=== PATIENT | female | born 1945 | race Caucasian/White ===

== ENCOUNTER → 2021-12-17 | Outpatient (CLI) | payer MEDICARE, SELFPAY ==
[2021-12-17 15:46] LABS: AST(SGOT) 19 U/L (15-37); Alanine Aminotransfer ALT/SGPT 27 U/L (13-56); Albumin, Serum 3.6 g/dL (3.2-5.0); Alkaline Phosphatase 80 U/L (45-117); Bilirubin, Direct 0.12 mg/dL (0.00-0.30); Cholesterol 209 mg/dL (200); Globulin 3.5 g/dL (2.2-4.2); High Density Lipoprotein 85 mg/dL; Protein, Total 7.1 g/dL (6.4-8.2); Triglycerides 85 mg/dL; Very Low Density Lipoprotein 17 mg/dL (5-40)
== END | disposition home or self-care (01) ==
PROVIDERS: PCP Internal Medicine; Visit Provider Internal Medicine Cardiovascular Disease
DX: E78.00 Pure hypercholesterolemia, unspecified (principal)
CPT/HCPCS: 36415; 80061; 80076

== ENCOUNTER → 2023-06-02 | Outpatient (CLI) | payer MEDICARE, SELFPAY ==
--- NOTE | 2023-06-02 10:02 | ECHOD_ITS ---
Reason For Study: PALPITATIONS Procedure This was a 2D Doppler, Color Flow transthoracic echocardiogram. Exam performed in department. Left Ventricle Normal LV size. Left ventricular systolic function is normal. Stage 1 diastolic dysfunction. The left ventricular ejection fraction is 60 %. No regional wall motion abnormalities noted. Right Ventricle Normal RV size. Normal systolic function. Atria Normal left atrium. Normal right atrium. Mitral Valve Normal mitral valve. Tricuspid Valve Normal tricuspid valve. Mild (1+) tricuspid valve insufficiency. Pulmonary artery systolic pressure is 29 mmHg. Aortic Valve Trisinus/trileaflet aortic valve. Pulmonic Valve Normal pulmonic valve. Great Vessels Normal aortic root. The pulmonary artery is normal size. Normal inferior vena cava. Pericardium/Pleural No pericardial effusion. MMode/2D Measurements & Calculations LVIDd: 4.1 cm IVSd: 0.83 cm Ao root diam: 3.0 cm LVIDs: 2.8 cm LVPWd: 0.81 cm RVDd: 3.6 cm FS: 31.3 % LAV(MOD-bp): 30.6 ml LVAd ap4: 22.6 cm2 SV(MOD-sp4): 37.8 ml LAV(MOD-bp) Indexed: 20.8 ml/m2 LVLd ap4: 6.6 cm LAV(MOD-sp2): 29.4 ml EDV(MOD-sp4): 62.4 ml LAV(MOD-sp4): 32.2 ml EDV(sp4-el): 65.6 ml LVAs ap4: 12.6 cm2 LVLs ap4: 5.4 cm ESV(MOD-sp4): 24.6 ml ESV(sp4-el): 25.1 ml EF(MOD-sp4): 60.6 % EF(sp4-el): 61.7 % SV(sp4-el): 40.5 ml LA A4 area: 14.0 cm2 LA dimension(2D): 3.4 cm RA A4 area: 15.6 cm2 Time Measurements MV dec time: 0.20 sec Doppler Measurements & Calculations MV E max delio: 64.0 cm/sec Lat Peak E' Delio: 8.0 cm/sec Med Peak E' Delio: 6.9 cm/sec MV A max delio: 74.6 cm/sec E/E' lat: 8.0 E/E' med: 9.2 MV E/A: 0.86 Ao V2 max: 116.4 cm/sec LV V1 max: 111.8 cm/sec PA V2 max: 59.5 cm/sec Ao max P.4 mmHg LV V1 max P.0 mmHg TR max delio: 254.6 cm/sec TR max P.9 mmHg ECHO/Echo Complete Interpretation Summary Normal LV size. Left ventricular systolic function is normal. Stage 1 diastolic dysfunction. The left ventricular ejection fraction is 60 %. Pulmonary artery systolic pressure is 29 mmHg. Ordering Physician: Олег Reeder Referring Physician: FLOYD DODGE Performed By: Della Crawford RDCS
--- OUTSIDE RECORDS SUMMARY | 2023-06-02 10:57 | XMS RPT_ITS | CCD ---
Author Name Unknown Address [address] [place] [address] Organization [facility] Care Team Providers Care Diamond Polisher Name Role Phone Gregg Dodge Unavailable BLAZE FARIA Unavailable Unavailable BLAZE FARIA Unavailable Unavailable GREGG DODGE Unavailable Unavailable Blaze Faria Unavailable Unavailable Blaze Faria Unavailable Unavailable Gregg Dodge Unavailable Unavailable Gregg Dodge Primary Care Provider Gregg Dodge Primary Care Provider Gregg Dodge MD Primary Care Provider BLAZE FARIA Attending Unavailable GREGG DODGE Primary Care Unavailable RONY FRANKLIN Attending Unavailable GREGG DODGE Primary Care Unavailable RONY FRANKLIN Admitting Unavailable RONY FRANKLIN Referring Unavailable GREGG DODGE Primary Care Unavailable ODALYS ALEXANDRE Attending Unavailable GREGG DODGE Primary Care Unavailable Gregg Dodge MD Primary Care Provider Gregg Dodge MD Primary Care Provider OLDER, FELICIA Referring Unavailable GREGG DODGE Primary Care Unavailable OLDER, FELICIA Attending Unavailable GREGG DODGE Referring Unavailable GREGG DODGE Primary Care Unavailable Allergies Allergy Classification Reported Allergen(s) Allergy Type Date of Onset Reaction(s) Facility Magnesium (2 sources) Magnesium Drug Allergy 11-27-2020 GI Intolerance [facility] (2 sources) Magnesium; Translations: [MAGNESIUM] Drug Allergy 11-27-2020 GI Intolerance [facility] Medications Current Medications Medication Drug Class(es) Dates Sig (Normalized) Sig (Original) amLODIPine 2.5 mg oral tablet (8 sources) Dihydropyridine Calcium Channel Cielo Start: 12-26-2020 End: 12-26-2021 take 1 tablet by mouth once daily amLODIPine (NORVASC) 2.5 MG tablet Take 1 (one) tablet (2.5 mg total) by mouth daily . 30 tablet 11 12/26/2020 12/26/2021 Active Completed/Discontinued Medications Medication Drug Class(es) Dates Sig (Normalized) Sig (Original) aspirin 81 mg oral tablet (8 sources) Nonsteroidal Anti-inflammatory Drug take 1 capsule by mouth once daily aspirin 81 mg cap Take 81 mg by mouth once daily. 0 Active Problems Active Problems Problem Classification Problem Date Documented Date Episodic/Chronic Anxiety disorders (6 sources) Generalized anxiety disorder; Translations: [Generalized anxiety disorder] Onset: 06-23-2007 11-25-2019 Chronic Cardiac dysrhythmias (11 sources) Ventricular premature beats; Translations: [Ventricular premature depolarization] Onset: 11-25-2016 11-25-2016 Chronic Osteoarthritis (1 source) Osteoarthritis of left knee joint; Translations: [Unilateral primary osteoarthritis, left knee] Chronic Other circulatory disease (8 sources) Raynaud's phenomenon ; Translations: [Raynaud's syndrome without gangrene] Onset: 04-28-2017 04-28-2017 Chronic Other eye disorders (3 sources) Vitreous opacities; Translations: [Other vitreous opacities, unspecified eye] Onset: 08-01-2014 08-01-2014 Chronic Other screening for suspected conditions (not mental disorders or infectious disease) (7 sources) Patient encounter status; Translations: [Encounter for screening mammogram for malignant neoplasm of breast] Onset: 02-13-2023 Episodic Retinal detachments; defects; vascular occlusion; and retinopathy (3 sources) Epiretinal membrane; Translations: [Puckering of macula, unspecified eye] Onset: 08-01-2014 08-01-2014 Chronic Past or Other Problems Problem Classification Problem Date Documented Da te Episodic/Chronic Cardiac dysrhythmias (7 sources) Palpitations; Translations: [Palpitations] Onset: 06-23-2007 01-03-2010 Episodic Coronary atherosclerosis and other heart disease (10 sources) Preinfarction syndrome; Translations: [Unstable angina] Onset: 11-25-2016 Resolved: 05-25-2018 05-01-2017 Chronic Nonspecific chest pain (9 sources) Chest pain; Translations: [Precordial pain] Onset: 05-25-2018 05-25-2018 Episodic Other eye disorders (3 sources) Epithelial basement membrane dystrophy; 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)] Onset: 08-01-2014 08-01-2014 Episodic Other eye disorders (3 sources) Dry eyes; Translations: [Dry eye syndrome of bilateral lacrimal glands] Onset: 08-01-2014 08-01-2014 Episodic Results Test Name Value Interpretation Reference Range Facil ity Vital Signs Date Time Vital Sign Value Performing Clinician Facility 01-16-2023 10:01-0400 Body height 151.1 cm Felicia Older SENIOR ELECTRICAL PROJECT MANAGER.[employer]BU[employer]DER [employer] Work Phone: [facility] 01-16-2023 10:01-0400 Body weight 52.16 kg Felicia Older SENIOR ELECTRICAL PROJECT MANAGER.[employer]BUILDER [employer] Work Phone: [facility] 01-16-2023 10:01-0400 Diastolic blood pressure 72 mm[Hg] Felicia Older SENIOR ELECTRICAL PROJECT MANAGER.[employer]BUILDER [employer] Work Phone: [facility] 01-16-2023 10:01-0400 Heart rate 54 /min Felicia Older SENIOR ELECTRICAL PROJECT MANAGER.[employer]BU[employer] Work Phone: [facility] 01-16-2023 10:01-0400 Respiratory rate 12 /min Felicia Older SENIOR ELECTRICAL PROJECT MANAGER.[employer]BU[employer]DER [employer] Work Phone: [facility] 01-16-2023 10:01-0400 SaO2% (BldA) [Mass fraction] 99 % Felicia Older SENIOR ELECTRICAL PROJECT MANAGER.[employer]BU[employer]DER [employer] Work Phone: [facility] 01-16-2023 10:01-0400 Systolic blood pressure 122 mm[Hg] Felicia Older SENIOR ELECTRICAL PROJECT MANAGER.[employer]BU[employer] Work Phone: [facility] 05-14-2021 09:25-0500 Body height 154.9 cm Rony Franklin [employer] Work Phone: [facility] 05-14-2021 09:25-0500 Body mass index (BMI) [Ratio] 21.16 kg/m2 Rony Franklin [employer] Work Phone: [facility] 05-14-2021 09:25-0500 Body weight 50.8 kg Rony Franklin CNP Work Phone: [facility] 11-27-2020 10:31-0400 Body height 154.9 cm Blaze Faria MD Work Phone: [facility] 11-27-2020 10:31-0400 Body mass index (BMI) [Ratio] 21.35 kg/m2 Blaze Faria MD Work Phone: [facility] 11-27-2020 10:31-0400 Body weight 51.26 kg Blaze Faria MD Work Phone: [facility] 11-27-2020 10:31-0400 Diastolic blood pressure 70 mm[Hg] Blaze Faria MD Work Phone: [facility] 11-27-2020 10:31-0400 Heart rate 59 /min Blaze Faria MD Work Phone: [facility] 11-27-2020 10:31-0400 SaO2% (BldA) [Mass fraction] 96 % Blaze Faria MD Work Phone: [facility] 11-27-2020 10:31-0400 Systolic blood pressure 108 mm[Hg] Blaze Faria MD Work Phone: [facility] 11-15-2019 09:28-0400 BMI (Body Mass Index) 21.16 kg/m2 Blaze Faria [facility] 11-15-2019 09:28-0400 Body Temperature 98.01 [degF] Blaze Faria [facility] 11-15-2019 09:28-0400 Body weight 50.8 kg Blaze Faria [facility] 11-15-2019 09:28-0400 BP Diastolic 57 mm[Hg] Blaze Faria [facility] 11-15-2019 09:28-0400 BP Systolic 97 mm[Hg] Blaze Faria [facility] 11-15-2019 09:28-0400 Pulse (Heart Rate) 57 /min Blaze Faria [facility] 11-15-2019 09:28-0400 Pulse Oximetry 96 % Blaze Faria [facility] 05-25-2018 11:48-0500 BMI (Body Mass Index) 22.48 kg/m2 Blaze Faria [facility] 05-25-2018 11:48-0500 BP Diastolic 70 mm[Hg] Blaze Faria [facility] 05-25-2018 11:48-0500 BP Systolic 130 mm[Hg] Blaze Faria [facility] 05-25-2018 11:48-0500 Height 154.9 cm Blaze Faria [facility] 05-25-2018 11:48-0500 Pulse (Heart Rate) 59 /min Blaze Faria [facility] 05-25-2018 11:48-0500 Pulse Oximetry 99 % Blaze Faria [facility] 05-25-2018 11:48-0500 Weight 53.98 kg Blaze Faria [facility] 05-01-2017 11:31-0500 BP Diastolic 61 mm[Hg] Blaze Faria [facility] Work Phone: 05-01-2017 11:31-0500 BP Systolic 137 mm[Hg] Blaze Faria [facility] Work Phone: 05-01-2017 11:31-0500 Pulse (Heart Rate) 55 /min Blaze Faria [facility] Work Phone: 05-01-2017 11:31-0500 Pulse Oximetry 99 % Blaze Faria [facility] Work Phone: 05-01-2017 11:31-0500 Respiratory Rate 13 /min Blaze Faria [facility] Work Phone: 05-01-2017 09:00-0500 BMI (Body Mass Index) 22.11 kg/m2 Blaze Faria [facility] Work Phone: 05-01-2017 09:00-0500 Height 154.9 cm Blaze Faria [facility] Work Phone: 05-01-2017 09:00-0500 Weight 53.07 kg Blaze Faria [facility] Work Phone: 04-28-2017 12:12-0500 BMI (Body Mass Index) 22.6 kg/m2 Blaze Faria [facility] Work Phone: 04-28-2017 12:12-0500 BP Diastolic 61 mm[Hg] Blaze Faria [facility] Work Phone: 04-28-2017 12:12-0500 BP Systolic 109 mm[Hg] Blaze Faria [facility] Work Phone: 04-28-2017 12:12-0500 Pulse (Heart Rate) 61 /min Blaze Faria [facility] Work Phone: 04-28-2017 12:12-0500 Pulse Oximetry 97 % Blaze Faria [facility] Work Phone: 04-28-2017 12:12-0500 Weight 54.25 kg Blaze Faria [facility] Work Phone: Encounters Encounter Date Encounter Type Care Provider Facility Start: 02-13-2023 Documentation procedure Mammog ryan Coordinator [facility] Start: 02-13-2023 Letter encounter Mammography Coordinator [facility] Department Start: 02-13-2023 End: 02-13-2023 ambulatory FELICIA OLDER Facility:[facility] Start: 02-13-2023 End: 02-13-2023 Subsequent hospital visit by physician Screen Mammo [facility] Mammogram Procedures Date Procedure Procedure Detail Performing Clinician Start: 02-13-2023 Screening mammograph y bi 2-view breast inc cad Felicia Older SENIOR ELECTRICAL PROJECT MANAGER.[employer] Work Phone: Start: 01-16-2023 INFLUENZA VACCINE, P RSV FREE, AGE 65+ YR, HIGH DOSE, QUADRIVALENT (FLUZONE HIGH-DOSE) Felicia Older SENIOR ELECTRICAL PROJECT MANAGER.[employer]BU[employer]DER [employer] Work Phone: Start: 12-05-2021 End: 12-05-2021 Screening mammography bi 2-view breast inc cad Gregg Dodge MD Work Phone: Start: 12-04-2020 Mammography [place] puente Start: 11-26-2019 Mammography Blaze cooper MD Work Phone: Start: 11-15-2019 12 lead ECG Blaze greene Work Phone: Start: 05-25-2018 12 lead ECG Blaze greene Work Phone: Start: 06-03-2017 Colonoscopy [facility] Start: 05-01-2017 End: 12-21-2017 LEFT HEART CATH POSSIBLE PTCA/STENT Blaze Faria Work Phone: Start: 04-28-2017 End: 04-28-2017 CASE REQUEST DIRECTOR OF TRAINING Blaze Faria Work Phone: Plan of Treatment Date Care Activity Detail Author Start: 06-03-2027 Colonoscopy COLONOSCOPY [facility] Start: 06-03-2027 COLORECTAL CANCER SCREENING COLORECTAL CANCER SCREENING [facility] Start: 11-25-2024 LIPID SCREEN LIPID SCREEN [facility] Start: 01-17-2024 Urine microalbumin profile [facility] Immunizations Immunization Date Immunization Notes Care Provider Fa cility 01-16-2023 influenza (HD-IIV4) vaccine, age 65+ yr, high dose, quadrivalent, PF (FLUZONE HIGH-DOSE) Felicia Older SENIOR ELECTRICAL PROJECT MANAGER.[employer] Work Phone: [facility] 01-16-2023 pneumococcal (PCV20) vaccine, 20 valent (PREVNAR 20) Felicia Older SENIOR ELECTRICAL PROJECT MANAGER.[employer]BU[employer]DER [employer] Work Phone: [facility] 01-16-2023 pneumococcal Conjuga te, unspecified formulation Felicia Older SENIOR ELECTRICAL PROJECT MANAGER.[employer]BU[employer]DER [employer] Work Phone: [facility] Work Phone: 03-02-2019 zoster vaccine recombinant [facility] Work Phone: 12-23-2018 zoster vaccine recombinant [facility] Work Phone: 06-23-2007 tetanus toxoid, redu halima diphtheria toxoid, and acellular pertussis vaccine, adsorbed [facility] Payers Date Payer Category Payer Medicare [id number] 2021 Medicare [id number] 2021 Medicare AET[employer] MEDICARE A ETNA MEDICARE PPO [id number] 2021-Present [phone] [address] [place] [address] O [id number] 2017 Private Health Insurance 2016 Medicare [id number] 2016 Medicare [employer] [place]NA[place]ED [place] [employer] (PPO) [id number] 2016-Present [id number] 2014 Medicare [id number] 1945 Unknown [id number] 03 1945 Unknown [id number] 03 1945 Unknown [id number] 03 1945 Unknown [id number] Social History Date Type Detail Facility Start: 12-03-2010 End: 05-01-2017 Tobacco smoking status [facility] Never smoker [facility] Start: 1945 Sex Assigned At Not on file [facility] Work Phone: Start: 11-15-2019 End: 01-16-2023 Alcohol intake Current non-drinker of alcohol (finding) [facility] Start: 08-25-2021 End: 09-04-2021 Exposure to SARS-CoV-2 (event) Not sure [facility] Start: 12-03-2010 End: 11-15-2019 Tobacco use and exposure Never used [facility] Start: 01-16-2023 History of Social function [facility] Work Phone: Start: 01-16-2023 Tobacco use panel [facility] Work Phone: Adult Depression Screening Assessment 1 [facility] Work Phone: Clinical Notes 10-22-2007 to 02-13-2023 Letter - Daniel, Mammography - 02/13/2023 4:59 PM EDTBMontserrat cota Mammo Tech - 02/13/2023 10:10 AM EDTPatient Felicia Finn APRN.[employer]BU[employer]DER [employer] - 01/16/2023 10:12 AM EDTPatient Instructions Note Date & Type Note Facility 02-13-2023 Miscellaneous Notes February 14, 2023 PID: [id number] Marva Rice [address] [place] [address] [place] [id number] Dear Ms. Rice, We are pleased to inform you that the results of your recent breast imaging exam on 02/13/2023 are normal. Your mammogram demonstrates that you have dense breast tissue, which could hide abnormalities. Dense breast tissue, in and of itself, is a relatively common condition. Therefore, this information is not provided to cause undue concern; rather, it is to raise your awareness and promote discussion with your health care provider regarding the presence of dense breast tissue in addition to other risk factors. Early detection of cancer is very important. We also understand recommendations regarding breast cancer screening are controversial. Please discuss with your primary care provider which strategy is best for you and whether a mammogram is right for you. Your imaging studies and report will be kept on file at [facility] as part of your permanent medical record and are available for your continuing care. Thank you for allowing us to help in meeting your health care needs. Sincerely, Dr. Beltran Interpreting Radiologist [facility] (Normal over 40) documented in this encounter [facility] 02-13-2023 Note HNO ID: [id number] Author: Montserrat Felton Mammo Clemencia Service: ? Author Type: Surface Mount Technology Operator Type: Progress Notes Filed: 02/13/2023 10:23 AM Note Text: Radiology Service Progress Note PATIENT NAME: Marva Rice DATE OF SERVICE: February 13, 2023 TIME: 10:08 AM PATIENT IDENTITY VERIFICATION COMPLETED USING TWO (2) IDENTIFIERS: Name and Date of confirmed by patient verbally. FALL SCREENING: Has the patient had 2 falls in the last year or 1 fall with injury or currently using an Ambulatory Assistive Device (Walker, Cane, Wheelchair, Crutches, etc.)? No PATIENT GENDER DATA: Female. status: : No status: NO. PATIENT RELEVANT IMPLANT DATA REVIEWED: Not Applicable RADIOLOGY DEPARTMENT: Mammography PERIPHERAL IV DATA: Not applicable SIGNED BY: Montserrat Felton [place] February 13, 2023 10:08 AM [facility] 02-13-2023 History of Present illness Narrative Radiology Service Progress Note PATIENT NAME: Marva Rice DATE OF SERVICE: February 13, 2023 TIME: 10:08 AM PATIENT IDENTITY VERIFICATION COMPLETED USING TWO (2) IDENTIFIERS: Name and Date of confirmed by patient verbally. FALL SCREENING: Has the patient had 2 falls in the last year or 1 fall with injury or currently using an Ambulatory Assistive Device (Walker, Cane, Wheelchair, Crutches, etc.)? No PATIENT GENDER DATA: Female. status: : No status: NO. PATIENT RELEVANT IMPLANT DATA REVIEWED: Not Applicable RADIOLOGY DEPARTMENT: Mammography PERIPHERAL IV DATA: Not applicable SIGNED BY: Montserrat Felton [place] February 13, 2023 10:08 AM documented in this encounter [facility] 01-16-2023 Note HNO ID: [id number] Author: Felicia Dixon APRN.[employer]BU[employer]DER [employer] Service: ? Author Type: Nurse Practitioner Type: Progress Notes Filed: 01/16/2023 10:43 AM Note Text: Marva Rice is a 77 year old female here for a Medicare wellness visit. Health Risk Assessment In general, health is: Very good Concerns with balance:Not at all Concerns with teeth or dentures:Not at all Concerns with sexual function:Not at all [place] anxious, stressed, angry, irritable, lonely, isolated, or had thoughts of hurting themself: Several days feels anxious due to family stressors Has little interest or pleasure in doing things: Not at all Bothered by feeling down, depressed, or hopeless: Several days Needs help with grocery shopping, cooking, housework, bathing, grooming, dressing, eating, sitting or standing, walking, using the toilet, handling finances, taking medications, using the telephone, or driving: No Following safety precautions in the home environment and vehicle: removed throw rugs from floors, installed grab bars in the bathroom, handrails in stairwells, having adequate lighting, wearing seatbelt at all times?: Yes except no grab bars Smokes cigarettes, vapes, or chew tobacco: No Eats healthy foods including fruits, vegetables, whole grains, and fiber-rich foods: Nearly every day Number of days per week engages in exercise: no routine aerobic exercise but is very active Average alcohol consumption: Never Current Providers Specialists: I have reviewed specialist-related care of the patient in the medical record. Current care team: Patient Care Team: Gregg Dodge MD as PCP - General Outside specialists seen: [facility]- [facility] Ophthalmology- Dr. Torrez ([place], [place]), Dr. Rice ([place]) Medical/Family history review Reviewed and updated problem list, medical/surgical/family/social history, medications, and allergies. Opioid use review Patient is not currently using opioids. Depression screening Depression screening tool completed and reviewed. Based on score and interview, patient is not at risk for depression. Screening tool discussed with patient, and I recommended no further intervention at this time. Cognitive screening Mini Cog Score: 4 Functional Observation Was the patient's timed Up AND Go test unsteady or ? 12 seconds? No Advance Care Planning End of Life planning discussed, including patient's advanced directive wishes: Yes Measurements BP 122/72 Pulse 54 Resp 12 Ht 4' 11.5 (1.51m) Wt 115 lb (52.2kg) SpO2 99% BMI 22.85 kg/(m2). Physical Exam Vitals reviewed. Constitutional: Appearance: She is not ill-appearing. Cardiovascular: Rate and Rhythm: Normal rate. Pulses: Normal pulses. Heart sounds: Normal heart sounds. No murmur heard. No friction rub. No gallop. Pulmonary: Effort: Pulmonary effort is normal. Breath sounds: Normal breath sounds. No wheezing, rhonchi or rales. Neurological: Mental Status: She is alert. Visual acuity (required for Welcome to Medicare): follows with optometry/ophthalmology Hearing Evaluation: within normal limits Assessment/Plan Medicare annual wellness visit, subsequent (Z00.00) - Counseled on healthy diet and regular exercise - Fall avoidance - Vaccines recommended Pneumococcal and Influenza - Mammogram recommended and ordered - Lipid panel - Diabetes screening - Depression screening 2. Palpitations - ICD9: 785.1, ICD10: R00.2 Stable on Norvasc and Metoprolol. Follow-up with cardiology as scheduled - COMP METABOLIC PANEL 3. Encounter for immunization - ICD9: V03.89, ICD10: Z23 - INFLUENZA VACCINE, PRSV FREE, AGE 65+ YR, HIGH DOSE, QUADRIVALENT (FLUZONE HIGH-DOSE) - PNEUMOCOCCAL VACCINE (PREVNAR 20) 4. Encounter for screening mammogram for malignant neoplasm of breast - ICD9: V76.12, ICD10: Z12.31 - TUCKER SCREENING 5. Encounter for lipid screening for cardiovascular disease - ICD9: V77.91, V81.2, ICD10: Z13.220, Z13.6 - LIPID PANEL BASIC Felicia Dixon APRN.CNP [facility] 01-16-2023 Instructions Felicia Dixon APRN.CNP - 01/16/2023 10:22 AM EDT Screening schedule The following prevention plan is recommended: PNEUMOCOCCAL: 65+(1 - PCV) Never done COVID-19 VACCINE(5 - Pfizer series) due on 12/06/2021 ADVANCE DIRECTIVE DISCUSSION Never done DEPRESSION ASSESSMENT Never done DIABETES SCREEN due on 11/25/2022 INFLUENZA(1) due on 01/10/2023 WHAT YOU CAN DO TO PREVENT FALLS Many falls can be prevented. By making some changes, you can lower your chances of falling. Four things YOU can do to prevent falls for you* and your caregiver 1. Begin a regular exercise program Exercise is one of the most important ways to lower your chances of falling. It makes you stronger and helps you feel better. Exercises that improve balance and coordination (like Momo Chi) are the most helpful. Lack of exercise leads to weakness and increases your chances of falling. Ask your doctor or health care provider about the best type of exercise program for you. 2. Have your health care provider review your medicines Have your doctor or pharmacist review all the medicines you take, even [id number] medicines. As you get older, the way medicines work in your body can change. Some medicines, or combinations of medicines, can make you sleepy or dizzy and can cause you to fall. 3. Have your vision checked Have your eyes checked by an eye doctor at least once a year. You may be wearing the wrong glasses or have a condition like glaucoma or cataracts that limits your vision. Poor vision can increase your chances of falling. 4. Make your home safer About half of all falls happen at home. To make your home safer: Remove things you can trip over (like papers, books, clothes, and shoes) from stairs and places where you walk. Remove small throw rugs or use double-sided tape to keep the rugs from slipping. Keep items you use often in cabinets you can reach easily without using a step stool. Have grab bars put in next to your toilet and in the tub or shower. Use non-slip mats in the bathtub and on shower floors. Improve the lighting in your home. As you get older, you need brighter lights to see well. Hang light-weight curtains or shades to reduce glare. Have handrails and lights put in on all staircases. Wear shoes both inside and outside the house. Avoid going barefoot or wearing slippers. For more information, contact: Centers for Disease Control and Prevention www.cdc.gov/injury * This information may not apply if you have certain medical conditions. documented in this encounter [facility] 01-16-2023 History of Present illness Narrative Marva Rice is a 77 year old female here for a Medicare wellness visit. Health Risk Assessment In general, health is: Very good Concerns with balance:Not at all Concerns with teeth or dentures:Not at all Concerns with sexual function:Not at all [place] anxious, stressed, angry, irritable, lonely, isolated, or had thoughts of hurting themself: Several days feels anxious due to family stressors Has little interest or pleasure in doing things: Not at all Bothered by feeling down, depressed, or hopeless: Several days Needs help with grocery shopping, cooking, housework, bathing, grooming, dressing, eating, sitting or standing, walking, using the toilet, handling finances, taking medications, using the telephone, or driving: No Following safety precautions in the home environment and vehicle: removed throw rugs from floors, installed grab bars in the bathroom, handrails in stairwells, having adequate lighting, wearing seatbelt at all times?: Yes except no grab bars Smokes cigarettes, vapes, or chew tobacco: No Eats healthy foods including fruits, vegetables, whole grains, and fiber-rich foods: Nearly every day Number of days per week engages in exercise: no routine aerobic exercise but is very active Average alcohol consumption: Never Current Providers Specialists: I have reviewed specialist-related care of the patient in the medical record. Current care team: Patient Care Team: Gregg Dodge MD as PCP - General Outside specialists seen: [facility]- [facility] Ophthalmology- Dr. Torrez ([place], [place]), Dr. Rice ([place]) Medical/Family history review Reviewed and updated problem list, medical/surgical/family/social history, medications, and allergies. Opioid use review Patient is not currently using opioids. Depression screening Depression screening tool completed and reviewed. Based on score and interview, patient is not at risk for depression. Screening tool discussed with patient, and I recommended no further intervention at this time. Cognitive screening Mini Cog Score: 4 Functional Observation Was the patient's timed Up & Go test unsteady or ? 12 seconds? No Advance Care Planning End of Life planning discussed, including patient's advanced directive wishes: Yes Measurements BP 122/72 Pulse 54 Resp 12 Ht 4' 11.5 (1.51m) Wt 115 lb (52.2kg) SpO2 99% BMI 22.85 kg/(m^2). Physical Exam Vitals reviewed. Constitutional: Appearance: She is not ill-appearing. Cardiovascular: Rate and Rhythm: Normal rate. Pulses: Normal pulses. Heart sounds: Normal heart sounds. No murmur heard. No friction rub. No gallop. Pulmonary: Effort: Pulmonary effort is normal. Breath sounds: Normal breath sounds. No wheezing, rhonchi or rales. Neurological: Mental Status: She is alert. Visual acuity (required for Welcome to Medicare): follows with optometry/ophthalmology Hearing Evaluation: within normal limits Assessment/Plan Medicare annual wellness visit, subsequent (Z00.00) - Counseled on healthy diet and regular exercise - Fall avoidance - Vaccines recommended Pneumococcal and Influenza - Mammogram recommended and ordered - Lipid panel - Diabetes screening - Depression screening 2. Palpitations - ICD9: 785.1, ICD10: R00.2 Stable on Norvasc and Metoprolol. Follow-up with cardiology as scheduled - COMP METABOLIC PANEL 3. Encounter for immunization - ICD9: V03.89, ICD10: Z23 - INFLUENZA VACCINE, PRSV FREE, AGE 65+ YR, HIGH DOSE, QUADRIVALENT (FLUZONE HIGH-DOSE) - PNEUMOCOCCAL VACCINE (PREVNAR 20) 4. Encounter for screening mammogram for malignant neoplasm of breast - ICD9: V76.12, ICD10: Z12.31 - TUCKER SCREENING 5. Encounter for lipid screening for cardiovascular disease - ICD9: V77.91, V81.2, ICD10: Z13.220, Z13.6 - LIPID PANEL BASIC Felicia Dixon APRN.CNP documented in this encounter [facility] 12-05-2021 Miscellaneous Notes December 05, 2021 PID: [id number] Marva Rice [address] [place] [address] [place] [id number] Dear Ms. Rice, We are pleased to inform you that the results of your recent breast imaging exam on 12/05/2021 are normal. Your mammogram demonstrates that you have dense breast tissue, which could hide abnormalities. Dense breast tissue, in and of itself, is a relatively common condition. Therefore, this information is not provided to cause undue concern; rather, it is to raise your awareness and promote discussion with your health care provider regarding the presence of dense breast tissue in addition to other risk factors. Early detection of cancer is very important. We also understand recommendations regarding breast cancer screening are controversial. Please discuss with your primary care provider which strategy is best for you and whether a mammogram is right for you. Your imaging studies and report will be kept on file at [facility] as part of your permanent medical record and are available for your continuing care. Thank you for allowing us to help in meeting your health care needs. Sincerely, Dr. Lucas Interpreting Radiologist [facility] (Normal over 40) documented in this encounter [facility] 12-05-2021 History of Present illness Narrative Radiology Service Progress Note PATIENT NAME: Marva Rice DATE OF SERVICE: December 05, 2021 TIME: 10:49 AM PATIENT IDENTITY VERIFICATION COMPLETED USING TWO (2) IDENTIFIERS: Name and Date of confirmed by patient verbally. FALL SCREENING: Has the patient had 2 falls in the last year or 1 fall with injury or currently using an Ambulatory Assistive Device (Walker, Cane, Wheelchair, Crutches, etc.)? No PATIENT GENDER DATA: Female. status: : No status: NO. PATIENT RELEVANT IMPLANT DATA REVIEWED: Not Applicable RADIOLOGY DEPARTMENT: Mammography PERIPHERAL IV DATA: Not applicable SIGNED BY: RT Gordo(R) December 05, 2021 10:49 AM documented in this encounter [facility] 09-04-2021 History of Present illness Narrative POPULATION HEALTH NAVIGATION OUTREACH Action/FYI: Med Care Gaps Discuss/Due: Advance Directives Medicare Wellness Breast Cancer Screening due 12/05/21 or after Outcome: Patient declined scheduling Medicare Wellness appointment. Scheduled patient for 12/05/21 Breast Cancer Screening. *Sending patient AD information via [facility] per patients request Pt identified by name and : YES, via phone Outreach Outcome/Action Spoke to patient or caregiver: Patient scheduled Reason for Outreach Care Gap or Scheduling/Wellness visits Payer: Payor: MED MEDICARE / Plan: [employer] MEDICARE PPO / Product Type: PPO / Care Gap Reviewed:: Annual Wellness visit Breast Cancer screening Reminder: Reminder note to check Health Maintenance for items below Health Maintenance items due: COVID-19 VACCINE(1) Never done DEPRESSION SCREENING Never done HEPATITIS C SCREENING Never done PNEUMOVAX AGE 65 AND OVER WITH 5YR LOOKBACK(1) Never done DTAP,TDAP,TD(2 - Td or Tdap) due on 06/23/2017 ADVANCE DIRECTIVE DISCUSSION Never done MAMMOGRAM due on 12/04/2021 Message Sent to Practice: No Navigation Signature: Madison Burns Population Health Navigator September 04, 2021 3:45 PM documented in this encounter [facility] 05-16-2021 History of Present illness Narrative Marva Rice 1945 CC: 75 y.o. is a she with left knee pain. Chief Complaint Patient presents with Left Knee - Pain . HPI: Knee Pain: Patient presents to the office with left knee pain. She denies any injury to the left knee. 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 She realized that after that, she noticed increased pain in the left knee. She had rested, elevated, taken otc pain medications and actually the knee feels much better today but she wanted to have it checked. She reports that she had increased swelling and pain in the knee for about 1-2 weeks and then it started to gradually improve. She denies any instability of the knee. PMH: Allergies Allergen Reactions Magnesium GI Intolerance Current Outpatient Medications: amLODIPine (NORVASC) 2.5 MG tablet, Take 1 (one) tablet (2.5 mg total) by mouth daily ., Disp: 30 tablet, Rfl: 11 aspirin 81 MG EC tablet, Take 162 mg by mouth daily ., Disp: , Rfl: cyanocobalamin (B-12) 1000 MCG tablet, Take 1,000 mcg by mouth daily ., Disp: , Rfl: metoprolol succinate (TOPROL-XL) 25 MG 24 hr tablet, Take 1 (one) tablet (25 mg total) by mouth daily ., Disp: 90 tablet, Rfl: 3 multivitamin with minerals tablet, Take 1 tablet by mouth daily ., Disp: , Rfl: nitroGLYCERIN (NITROSTAT) 0.4 MG SL tablet, Place 0.4 mg under the tongue every 5 (five) minutes as needed for chest pain , if no relief after 3 doses call 911 ., Disp: , Rfl: Past Medical History: Diagnosis Date Arrhythmia Irregular heartbeat Past Surgical History: Procedure Laterality Date CARDIAC CATHETERIZATION Right 05/01/2017 Procedure: Left Heart Cath Possible PTCA/Stent; Surgeon: Blaze Faria MD; [place] [facility] [place]; Service: Cardiovascular TUBAL LIGATION Social History Socioeconomic History Marital status: Tobacco Use Smoking status: Never Smoker Smokeless tobacco: Never Used Vaping Use Vaping Use: Never used Substance and Sexual Activity Alcohol use: No Drug use: No The patient's past medical history, surgical history, social history, family history, medications and allergies were reviewed with the patient today and are available in the chart for further review. ROS: Review of Systems Constitutional: Negative for activity change and fatigue. HENT: Negative for congestion, hearing loss and trouble swallowing. Eyes: Negative for visual disturbance. Respiratory: Negative for chest tightness and shortness of breath. Cardiovascular: Negative for chest pain and palpitations. Gastrointestinal: Negative for abdominal pain, diarrhea, nausea and vomiting. Endocrine: Negative for polydipsia, polyphagia and polyuria. Genitourinary: Negative for decreased urine volume, difficulty urinating and hematuria. Musculoskeletal: Positive for arthralgias. Negative for joint swelling and myalgias. Skin: Negative for color change, rash and wound. Allergic/Immunologic: Negative for immunocompromised state. Neurological: Negative for dizziness, weakness, light-headedness and numbness. Hematological: Does not bruise/bleed easily. Psychiatric/Behavioral: Negative for confusion and sleep disturbance. The patient is not nervous/anxious. PE: Physical Exam Constitutional: Appearance: She is well-developed and well-nourished. HENT: Head: Normocephalic. Eyes: Pupils: Pupils are equal, round, and reactive to light. Cardiovascular: Rate and Rhythm: Normal rate and regular rhythm. Pulmonary: Effort: Pulmonary effort is normal. Breath sounds: Normal breath sounds. Abdominal: General: Bowel sounds are normal. Palpations: Abdomen is soft. Musculoskeletal: General: Tenderness present. Normal range of motion. Cervical back: Normal range of motion and neck supple. Left knee: No effusion. Instability Tests: Medial Glendy test negative and lateral Glendy test negative. Skin: General: Skin is warm and dry. Neurological: Mental Status: She is alert and oriented to person, place, and time. ORTHO: Left Knee Exam Tenderness The patient is experiencing tenderness in the medial joint line. Range of Motion The patient has normal left knee ROM. Tests Glendy: Medial - negative Lateral - negative Varus: negative Valgus: negative Moe: Anterior - negative Drawer: Anterior - negative Posterior - negative Other Erythema: absent Scars: absent Sensation: normal Pulse: present Swelling: none Effusion: no effusion present Imaging: L Knee: No acute bone abnormality. Marked narrowing of the medial joint space of the left knee suggesting soft tissue injury or soft tissue degenerative changes. No suspicious bone abnormality. Assessment/Plan: After examination and reviewing of the patient x-ray images, we discussed treatment options. At this time, I don't feel as though a cortisone injection is needed given her continued to improvement, she agrees with this as well. She is to continue with otc pain medications if needed and I will see her back if the knee becomes painful again. She verbalizes understanding and is in agreement with the treatment plan. Diagnosis: Problem List Items Addressed This Visit None Follow Up: No follow-ups on file. Rony Franklin CNP documented in this encounter [facility] 11-27-2020 History of Present illness Narrative Patient Name: Marva Rice [facility] MR #: [id number] Interventional Cardiology Blaze Faria MD, [facility] 11/27/20 Dear Gregg Dodge MD, Marva Rice was seen in follow up for : Problem Chest Pain ? Syndrome x during time when had cath-2017 Pvc (Premature Ventricular Contraction) Long h/o PVC controlled with toprol Assessment and Plan PVC (premature ventricular contraction) Doing well, Medications reviewed and recommended to continue toprol Followup 1 year Chest pain Having exertional( walking up a hill or very cold) pressure/tightness- stays until gets to destination (2-3 minutes) not always predictable She does say 2 baby asa might prevent it-- same frequency as 2017-- has never tried the nitroglycerin Discussed imdur, amlodipine and will try amlodipine because of the BURGESS with imdur Thank you or allowing me to participate in the care of your patients. No orders of the defined types were placed in this encounter. Return in about 1 year (around 11/27/2021). EKG:not done Subjective: Marva Rice is a 74 y.o. y/o female : Discussed exertional CP issues Denies sob, palpitations, pnd, orthopnea,edema or syncope. Past History and Exam PMH: Past Medical History: Diagnosis Date Arrhythmia Irregular heartbeat Physical exam: BP 108/70 (BP Location: Right arm, Patient Position: Sitting) Pulse (!) 59 Ht 5' 1 Wt 51.3 kg (113 lb) SpO2 96% BMI 21.35 kg/m General: No acute distress, alert, and oriented x3. HEENT: Normocephalic, nl conjunctiva Neck: Supple, no gross thyromegaly,no palpable neck adenopathy Cardiovascular: regular rate and rhythm. no murmurs, .No JVD, No Carotid Bruits, no LE edema :Respiratory: Clear to auscultation bilaterally without wheezes, rhonchi, or rales Abdominal: soft, nontender, nondistended,no gross HSM or masses noted. Skin: Normal turgor,no major peripheral rashes noted. Extremities : No clubbing, cyanosis Neurological: Cranial nerves 2 through 12 intact grossly. No focal neurological deficits noted. Psych: Normal mood and affect. ROS/MA were reviewed Home Medications: Patient's Medications New Prescriptions AMLODIPINE (NORVASC) 5 MG TABLET Take 1 (one) tablet (5 mg total) by mouth daily . Previous Medications ASPIRIN 81 MG EC TABLET Take 162 mg by mouth daily . CYANOCOBALAMIN (B-12) 1000 MCG TABLET Take 1,000 mcg by mouth daily . MULTIVITAMIN WITH MINERALS TABLET Take 1 tablet by mouth daily . NITROGLYCERIN (NITROSTAT) 0.[address] 0.4 mg under the tongue every 5 (five) minutes as needed for chest pain , if no relief after 3 doses call 911 . Modified Medications Modified Medication Previous Medication METOPROLOL SUCCINATE (TOPROL-XL) 25 MG 24 HR TABLET metoprolol succinate (TOPROL-XL) 25 MG 24 hr tablet Take 1 (one) tablet (25 mg total) by mouth daily . Take 1 (one) tablet (25 mg total) by mouth daily . Discontinued Medications MAGNESIUM OXIDE (MAG-OX) 400 MG (241.3 MG MAGNESIUM) TABLET Take by mouth daily . METOPROLOL SUCCINATE (TOPROL-XL) 25 MG 24 HR TABLET TAKE 1 TABLET DAILY (YEARLY FOLLOW UP APPOINTMENT NEEDED) Review of Systems Constitutional: Negative for diaphoresis, malaise/fatigue, weight gain and weight loss. HENT: Negative for hearing loss, nosebleeds and tinnitus. Eyes: Negative for blurred vision and visual disturbance. Cardiovascular: Positive for chest pain. Negative for claudication, cyanosis, dyspnea on exertion, irregular heartbeat, leg swelling, near-syncope, orthopnea, palpitations, paroxysmal nocturnal dyspnea and syncope. Respiratory: Negative for hemoptysis, shortness of breath and snoring. Endocrine: Negative for cold intolerance and heat intolerance. Hematologic/Lymphatic: Does not bruise/bleed easily. Skin: Negative for flushing, poor wound healing and rash. Musculoskeletal: Negative for back pain, muscle weakness and myalgias. Gastrointestinal: Negative for abdominal pain, change in bowel habit, melena, nausea and vomiting. Genitourinary: Negative for decreased libido and hematuria. Neurological: Negative for loss of balance and numbness. Psychiatric/Behavioral: Negative for memory loss. The patient is not nervous/anxious. documented in this encounter [facility] 11-27-2020 Miscellaneous Notes Associated Problem(s): Chest pain Having exertional( walking up a hill or very cold) pressure/tightness- stays until gets to destination (2-3 minutes) not always predictable She does say 2 baby asa might prevent it-- same frequency as 2017-- has never tried the nitroglycerin Discussed imdur, amlodipine and will try amlodipine because of the BURGESS with imdur Associated Problem(s): PVC (premature ventricular contraction) Doing well, Medications reviewed and recommended to continue toprol Followup 1 year documented in this encounter [facility] 11-27-2020 Instructions Angela Marcos MA - 11/27/2020 10:15 AM EDT How to contact your Care Team: Provider: Dr. Faria Nurse: Candie Owen RN In case of an emergency please call 911. REFILLS: When in need for refills please call your care team or the office at [phone]. Please include medication name, pharmacy name, and specify 30-day or 90-day supply. Please check with your pharmacy within 24 hours of request for your refill. You must follow up as directed to continue current refills. Thank you! documented in this encounter [facility] documented as of this encounter (statuses as of 09/04/2021) [facility] History of Past illness Narrative* Problem Noted Date Resolved Date Diarrhea 10/22/2007 01/03/2010 Overview: See 6-08 note for description of events in 1-07 and 3-08 documented as of this encounter (statuses as of 12/06/2021) [address]12-2008 History of Past illness Narrative* Problem Noted Date Resolved Date Diarrhea 10/22/2007 01/03/2010 Overview: See 6-08 note for description of events in 1-07 and 3-08 documented as of this encounter (statuses as of 12/07/2021) [facility] History of Past illness Narrative* Problem Noted Date Diagnosed Date Resolved Date Diarrhea 10/22/2007 01/03/2010 Overview: See 6-08 note for description of events in 1-07 and 3-08 documented as of this encounter (statuses as of 01/16/2023) [facility] History of Past illness Narrative* Problem Noted Date Diagnosed Date Resolved Date Diarrhea 10/22/2007 01/03/2010 Overview: See 6-08 note for description of events in 1-07 and 3-08 documented as of this encounter (statuses as of 02/15/2023) [facility] History of Past illness Narrative* Problem Noted Date Diagnosed Date Resolved Date Diarrhea 10/22/2007 01/03/2010 Overview: See 10-17 note for description of events in 05-18 and 07-17 documented as of this encounter (statuses as of 03/16/2023) [facility] note* Diagnosis PVC (premature ventricular contraction) Other premature beats Precordial pain documented in this encounter [facility] note* Diagnosis Primary osteoarthritis of left knee- Primary documented in this encounter [facility] note* Diagnosis Screening mammogram, encounter for- Primary documented in this encounter [facility] note* Diagnosis Screening mammogram, encounter for documented in this encounter [facility] note* Diagnosis Medicare annual wellness visit, subsequent- Primary Routine general medical examination at a health care facility Palpitations Encounter for immunization Need for other specified prophylactic vaccination against single bacterial disease Encounter for screening mammogram for malignant neoplasm of breast Other screening mammogram Encounter for lipid screening for cardiovascular disease Screening for lipoid disorders documented in this encounter [facility] note* Diagnosis Encounter for screening mammogram for malignant neoplasm of breast Other screening mammogram documented in this encounter [facility] for referral (narrative)* Diagnostic Procedure Only (Routine) - Authorized Specialty Diagnoses / Procedures Referred By Jua nMiguel sylvester Referred To Contact [facility] Diagnoses Screening mammogram, encounter for Procedures TUCKER SCREENING SCREENING MAMMOGRAPHY BI 2-VIEW BREAST INC Gregg Reece MD [address] [place] [address] [facility] [address] [place] [address] Referral ID Status Reason Start Date Expiration Date Visits Requested Visits Authorized [id number] Authorized Auto-Generat ed Referral 09/04/2021 10/04/2022 1 1 [facility] for referral (narrative)* Diagnostic Procedure Only (Routine) - Closed Specialty Diagnoses / Procedures Referred By Juan Miguel sylvester Referred To Contact [facility] Diagnoses Screening mammogram, encounter for Procedures TUCKER SCREENING SCREENING MAMMOGRAPHY BI 2-VIEW BREAST INC Gregg Reece MD [address] [place] [address] [facility] [address] [place] [address] Referral ID Status Reason Start Date Expiration Date V isits Requested Visits Authorized [id number] Closed Auto-Generate d Referral 09/04/2021 10/04/2022 1 1 T [facility] for referral (narrative)* Diagnostic Procedure Only (Routine) - Authorized Specialty Diagnoses / Procedures Referred By Contac t Referred To Contact [facility] Diagnoses Encounter for screening mammogram for malignant neoplasm of breast Procedures TUCKER SCREENING SCREENING MAMMOGRAPHY BI 2-VIEW BREAST INC CAD Felicia Dixon, SENIOR ELECTRICAL PROJECT MANAGER.[employer] [address] [place] [address] [facility] [address] [place] [address] Referral ID Status Reason Start Date Expiration Date Visits Requested Visits Authorized [id number] Authorized Auto-Generat ed Referral 01/16/2023 02/15/2024 1 1 [facility] for referral (narrative)* Diagnostic Procedure Only (Routine) - Closed Specialty Diagnoses / Procedures Referred By Contac t Referred To Contact [facility] Diagnoses Encounter for screening mammogram for malignant neoplasm of breast Procedures TUCKER SCREENING SCREENING MAMMOGRAPHY BI 2-VIEW BREAST INC CAD Felicia Dixon, SENIOR ELECTRICAL PROJECT MANAGER.[employer] [address] [place] [address] [facility] [address] [place] [address] Referral ID Status Reason Start Date Expiration Date V isits Requested Visits Authorized [id number] Closed Auto-Generate d Referral 01/16/2023 02/15/2024 1 1 T [facility] for visit Narrative* Diagnostic Procedure Only (Routine) - Closed Specialty Diagnoses / Procedures Referred By Contac t Referred To Contact [facility] Diagnoses Screening mammogram, encounter for Procedures TUCKER SCREENING SCREENING MAMMOGRAPHY BI 2-VIEW BREAST INC CAD Gregg Dodge MD [address] [place] [address] [facility] [address] [place] [address] Referral ID Status Reason Start Date Expiration Date V isits Requested Visits Authorized [id number] Closed Auto-Generate d Referral 09/04/2021 10/04/2022 1 1 [facility] Narrative* Diagnostic Procedure Only (Routine) - Closed Specialty Diagnoses / Procedures Referred By Contac t Referred To Contact [facility] Diagnoses Encounter for screening mammogram for malignant neoplasm of breast Procedures TUCKER SCREENING SCREENING MAMMOGRAPHY BI 2-VIEW BREAST INC CAD Destiny, Felicia, SENIOR ELECTRICAL PROJECT MANAGER.[employer] [address] [place] [address] [facility] [address] [place] [address] Referral ID Status Reason Start Date Expiration Date V isits Requested Visits Authorized [id number] Closed Auto-Generate d Referral 01/16/2023 02/15/2024 1 1 [facility] [place] Hospital Course * Blaze Faria MD - 05/01/2017 9:55 AM EST Formatting of this note may be different from the original. DISCHARGE SUMMARY Patient: Marva Rice Account: [id number] Admitted: 05/01/2017 Discharge Date/Time: No discharge date for patient encounter. Clinical Summary Perpetual Assessment: Discharge Diagnoses and Associated Hospital Course: * Unstable angina (HCC) Assessment & Plan She has angiographically normal coronary arteries. 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 Will discuss nitrates Surgeries Left Heart Cath Possible PTCA/Stent Procedures No orders of the defined types were placed in this encounter. Consults No orders of the defined types were placed in this encounter. Other Tests Procedures Cardiac Catheterization Allergies Patient has no known allergies. Discharge Diet Discharge Medications Medication List START taking these medications isosorbide mononitrate 30 MG 24 hr tablet Commonly known as: IMDUR Take 1 (one) tablet (30 mg total) by mouth every morning. CONTINUE taking these medications metoprolol succinate 25 MG 24 hr tablet Commonly known as: TOPROL-XL Take 1 (one) tablet (25 mg total) by mouth daily. nitroGLYCERIN 0.4 MG SL tablet Commonly known as: NITROSTAT Place 1 (one) tablet (0.4 mg total) under the tongue every 5 (five) minutes as needed for chest pain , if no relief after 3rd dose call 911. STOP taking these medications aspirin 81 MG EC tablet Where to Get Your Medications These medications were sent to [facility] - [place] [id number] isosorbide mononitrate 30 MG 24 hr tablet Physician(s) Primary Care Provider: Gregg Dodge MD, , Address: [address] [place] [address] / [facility] [address] Follow Up: No follow-up provider specified. Additional Information Patient instructions, including activity, were given to the patient/family at discharge. Please seethe After Visit Summary in the medical record for details. Time spent on discharge: < 30 minutes Completed by: Blaze Faria on 05/01/17, 10:18 AM in this encounter Discharge Instructions * Discharge Instr - Other Orders - Kanchan Holly RN - 05/01/2017 11:00 AM EST No lifting over 10 lbs for one week. Do not sign any legal documents today. Do not drive today. * Kanchan Holly RN - 05/01/2017 Coronary Angiogram: Before Your Procedure What is a coronary angiogram? A coronary angiogram is a test to look at the blood vessels of your heart. These are called the coronary arteries. You may have this test to see if any of these arteries are narrowed or blocked. The test may also be used to measure the pressure in your heart's chambers. A doctor will put a thin, flexible tube into a blood vessel in your upper leg or groin. This tube is called a catheter. In some cases, the doctor may insert it in a blood vessel near your elbow or wrist. During the test, the doctor moves the catheter through the blood vessel and into your heart. Then the doctor puts a dye into the catheter. This makes your coronary arteries show up on a screen. Your doctor can see if the arteries are blocked or narrowed. Follow-up care is a gregorio part of your treatment and safety. Be sure to make and go to all appointments, and call your doctor if you are having problems. It's also a good idea to know your test resultsand keep a list of the medicines you take. What happens before the procedure? Procedures can be stressful. This information will help you understand what you can expect. And it will help you safely prepare for your procedure. Preparing for the procedure Understand exactly what procedure is planned, along with the risks, benefits, and other options. Tell your doctors ALL the medicines, vitamins, supplements, and herbal remedies you take. Some of these can increase the risk of bleeding or interact with anesthesia. If you take blood thinners, such as warfarin (Coumadin), clopidogrel (Plavix), or aspirin, be sure to talk to your doctor. He or she will tell you if you should stop taking these medicines before your procedure. Make sure that you understand exactly what your doctor wants you to do. Your doctor will tell you which medicines to take or stop before your procedure. You may need to stop taking certain medicines a week or more before the procedure. So talk to your doctor as soon as you can. If you have an advance directive, let your doctor know. It may include a living will and a durable power of oil field caser for health care. Bring a copy to the hospital. If you don't have one, you may wantto prepare one. It lets your doctor and loved ones know your health care wishes. Doctors advise that everyone prepare these papers before any type of surgery or procedure. What happens on the day of the procedure? Follow the instructions exactly about when to stop eating and drinking. If you don't, your procedure may be canceled. If your doctor told you to take your medicines on the day of the procedure, take them with only a sip of water. Take a bath or shower before you come in for your procedure. Do not apply lotions, perfumes, deodorants, or nail zambian. Do not shave the procedure site yourself. Take off all jewelry and piercings. And take out contact lenses, if you wear them. At the hospital or surgery center Bring a picture ID. You will be kept comfortable and safe by your anesthesia provider. You may get medicine that relaxes you or puts you in a light sleep. The area being worked on will be numb. After the procedure, pressure will be applied to the area where the catheter was put into your artery. This will prevent bleeding. A bandage may be placed on the area. The bandage will stay on your groin or arm. Nurses will check your heart rate and blood pressure. The nurse also will check the catheter site for bleeding. If the catheter was put in your groin, you will need to lie still and keep your leg straight for several hours. The nurse may put a weighted bag on your leg to help you keep it still. If the catheter was put in your arm, you may be able to sit up and get out of bed right away. But you will need to keep your arm still for at least one hour. You may be able to go home later the same day, or you may need to stay in the hospital overnight. You may have a bruise where the catheter was put in your groin or arm. This is normal and will go away. Going home Be sure you have someone to drive you home. Anesthesia and pain medicine make it unsafe for you to drive. You will be given more specific instructions about recovering from your procedure. They will cover things like diet, wound care, follow-up care, driving, and getting back to your normal routine. When should you call your doctor? You have questions or concerns. You don't understand how to prepare for your procedure. You become ill before the procedure (such as fever, flu, or a cold). You need to reschedule or have changed your mind about having the procedure. Where can you learn more? Log into your personal health record on [email or web address] and enter B598 in the Education box to learn more about Coronary Angiogram: Before Your Procedure. Current as of: June 07, 2015 Content Version: 11.2 3541-7827 [employer]. Care instructions adapted under license by your healthcare professional. If you have questions about a medical condition or this instruction, always ask your healthcare professional. [employer] disclaims any warranty or liability for your use of this information. in this encounter Assessments Diagnosis Unstable angina (HCC) Intermediate coronary syndrome Diagnosis Unstable angina (HCC) Intermediate coronary syndrome Raynaud's phenomenon without gangrene Diagnosis PVC (premature ventricular contraction) Other premature beats Chest pain, unspecified type Diagnosis PVC (premature ventricular contraction) Other premature beats Chest pain, unspecified type Summary Purpose Family History No Family History Records FoundNo Family History Records FoundNo Family History Records FoundNo Family History Records Found Advance Directives Latest Code Status on File Code Status Date Activated Date Inactivated Comments Full Code 04/30/2017 10:59 AM 05/01/2017 8:16 AM Documents on File Type Date Recorded 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 Advance Directives and Living Will Latest Code Status on File Code Status Date Activated Date Inactivated Comments Full Code 04/30/2017 10:59 AM 05/01/2017 8:16 AM Documents on File Type Date Recorded 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 Advance Directive(s) 06/03/2017 12:09 PM Documents on File Type Date Recorded 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 Syndrome x during time when had cath-2017 Pvc (Premature Ventricular Contraction) Long h/o PVC controlled with toprol Unstable Angina (Hcc) (Resolved) Neg stress 2013 Nl cath- 2017 Assessment and Plan PVC (premature ventricular contraction) Rare PVC No change and much better Doing well, Medications reviewed and will continue current meds Followup 1 year Chest pain No issues and feels much better than last year hasnt used and can stop imdur Thank you or allowing me to participate in the care of your patients. No orders of the defined types were placed in this encounter. Return in about 1 year (around 05/25/2019). EKG:Normal sinus rhythm. Subjective: Discussed recent home nurse visit from [facility] Denies chest discomfort, sob, palpitations, pnd, orthopnea,edema or syncope. Past HistoryandExam PMH: Past Medical History: Diagnosis Date Arrhythmia Irregular heartbeat Physical exam: BP 130/70 Pulse (!) 59 Ht 5' 1 Wt 54 kg (119 lb) SpO2 99% BMI 22.48 kg/m General: No acute distress, alert, and oriented x3. HEENT: Normocephalic, Neck: Supple, Cardiovascular: Regular rate and rhythm. No , murmurs, No JVD, No Carotid Bruits Respiratory: Clear to auscultation bilaterally Abdominal: Soft, nontender, nondistended,. Skin: Normal turgor, well-hydrated, Extremities : No clubbing cyanosis or edema Neurological: Cranial nerves 2 through 12 intact grossly. No focal neurological deficits noted. Psych: Normal mood and affect. ROS/MA were reviewed Home Medications: Medication List Accurate as of 05/25/18 12:10 PM. If you have any questions, ask your nurse or doctor. CONTINUE taking these medications metoprolol succinate 25 MG 24 hr tablet Commonly known as: TOPROL-XL Take 1 (one) tablet (25 mg total) by mouth daily . nitroGLYCERIN 0.4 MG SL tablet Commonly known as: NITROSTAT * Angela Marcos MA - 05/25/2018 11:47 AM EST Review of Systems Constitution: Negative for diaphoresis, malaise/fatigue, weight gain and weight loss. HENT: Negative for hearing loss, nosebleeds and tinnitus. Eyes: Negative for blurred vision and visual disturbance. Cardiovascular: Positive for irregular heartbeat. Negative for chest pain, claudication, cyanosis, dyspnea on exertion, leg swelling, near-syncope, orthopnea, palpitations, paroxysmal nocturnal dyspnea and syncope. Respiratory: Negative for hemoptysis, shortness of breath and snoring. Endocrine: Negative for cold intolerance and heat intolerance. Hematologic/Lymphatic: Does not bruise/bleed easily. Skin: Negative for flushing, poor wound healing and rash. Musculoskeletal: Negative for back pain, muscle weakness and myalgias. Gastrointestinal: Negative for abdominal pain, change in bowel habit, melena, nausea and vomiting. Genitourinary: Negative for decreased libido and hematuria. Neurological: Negative for loss of balance and numbness. Psychiatric/Behavioral: Negative for memory loss. The patient is not nervous/anxious. in this encounter* Blaze Faria MD - 11/15/2019 9:45 AM EDT Patient Name: Marva Rice MR #: [id number] Interventional Cardiology Blaze Faria MD, [facility] 11/15/19 Dear Gregg Dodge MD, Marva Rice was seen in follow up for : Problem Chest Pain ? Syndrome x during time when had cath-2017 Pvc (Premature Ventricular Contraction) Long h/o PVC controlled with toprol Assessment and Plan Chest pain Still has rare, unpredictable times of exertional chest tightness lasting 2-3 minutes But stays extremely active PVC (premature ventricular contraction) Minimal PVCs Doing well, Medications reviewed and will continue current meds Followup 1 year Thank you or allowing me to participate in the care of your patients. No orders of the defined types were placed in this encounter. Return in about 1 year (around 11/14/2020). EKG:Normal sinus rhythm. Subjective: Denies sob, palpitations, pnd, orthopnea,edema or syncope. Past HistoryandExam PMH: Past Medical History: Diagnosis Date Arrhythmia Irregular heartbeat Physical exam: BP (!) 97/57 Pulse (!) 57 Temp 98 F (36.7 C) (Oral) Wt 50.8 kg (112 lb) SpO2 96% BMI 21.16 kg/m General: No acute distress, alert, and oriented x3. HEENT: Normocephalic, normal oral mucosa, nl conjunctiva Neck: Supple, no gross thyromegaly,no palpable adenopathy Cardiovascular: Regular rate and rhythm. no murmurs, .No JVD, No Carotid Bruits, no LE edema :Respiratory: Clear to auscultation bilaterally without wheezes, rhonchi, or rales Abdominal: soft, nontender, nondistended,no gross HSM or masses noted. Skin: Normal turgor, well-hydrated, no rashes noted. Extremities : No clubbing cyanosis Neurological: Cranial nerves 2 through 12 intact grossly. No focal neurological deficits noted. Psych: Normal mood and affect. ROS/MA were reviewed Home Medications: Patient's Medications New Prescriptions No medications on file Previous Medications MAGNESIUM OXIDE (MAG-OX) 400 MG (241.3 MG MAGNESIUM) TABLET Take by mouth daily . METOPROLOL SUCCINATE (TOPROL-XL) 25 MG 24 HR TABLET TAKE 1 TABLET DAILY (YEARLY FOLLOW UP APPOINTMENT NEEDED) NITROGLYCERIN (NITROSTAT) 0.[address] 0.4 mg under the tongue every 5 (five) minutes as needed for chest pain , if no relief after 3 doses call 911 . Modified Medications Modified Medication Previous Medication METOPROLOL SUCCINATE (TOPROL-XL) 25 MG 24 HR TABLET metoprolol succinate (TOPROL-XL) 25 MG 24 hr tablet Take 1 (one) tablet (25 mg total) by mouth daily . TAKE 1 TABLET DAILY (YEARLY FOLLOW UP APPOINTMENT NEEDED) Discontinued Medications No medications on file * Radha Angeles MA - 11/15/2019 9:34 AM EDT Review of Systems Constitution: Negative for diaphoresis, malaise/fatigue, weight gain and weight loss. HENT: Negative for hearing loss, nosebleeds and tinnitus. Eyes: Negative for blurred vision and visual disturbance. Cardiovascular: Negative for chest pain, claudication, cyanosis, dyspnea on exertion, irregular heartbeat, leg swelling, near-syncope, orthopnea, palpitations, paroxysmal nocturnal dyspnea and syncope. Respiratory: Negative for hemoptysis, shortness of breath and snoring. Endocrine: Negative for cold intolerance and heat intolerance. Hematologic/Lymphatic: Does not bruise/bleed easily. Skin: Negative for flushing, poor wound healing and rash. Musculoskeletal: Negative for back pain, muscle weakness and myalgias. Gastrointestinal: Negative for abdominal pain, change in bowel habit, melena, nausea and vomiting. Genitourinary: Negative for decreased libido and hematuria. Neurological: Negative for loss of balance and numbness. Psychiatric/Behavioral: Negative for memory loss. The patient is not nervous/anxious. documented in this encounter Instructions * Patient Instructions* Angela Marcos MA - 11/15/2019 9:30 AM EDT How to contact your Care Team: Provider: Dr. Faria Nurse: Candie Owen RN In case of an emergency please call 911. REFILLS: When in need for refills please call your care team or the office at [phone]. Please include medication name, pharmacy name, and specify 30-day or 90-day supply. Please check with your pharmacy within 24 hours of request for your refill. You must follow up as directed to continue current refills. Thank you! documented in this encounter Additional Source Comments Blaze Faria MD - 05/01/2017 8:56 AM Blaze Rogel MD - 04/28/2017 12:56 PM EST H&P Notes (unrecognized sect ion and content) INTERVAL HISTORY AND PHYSICAL Patient Name: Marva Rice Admit Date: [id number] MR #: [id number] : 1945 The H&P has been reviewed and the patient has been examined. I concur with the findings of the H&P. There are no significant changes. It is appropriate to proceed with the planned procedure. Sedation Plan: Moderate ASA Classification: 2 - Patient with mild systemic disease Mallampati Score: II Blaze Faria MD 05/01/2017 8:56 AM Formatting of this note may be different from the original. Patient Name: Marva Rice MR #: [id number] Assessment and Plan 04/28/17 Dear Gregg Dodge MD, Marva Rice was seen today and my impressions/recommendations are as follows: Unstable angina (HCC) Continues to have Predictable angina in cold or in warm with wheel barrel Occurring with less activity Now that it is cold Will proceed with cath Raynaud phenomenon discusssed and recommended to keep warm Thank you or allowing me to participate in the care of your patients. Orders Placed This Encounter Procedures Basic Metabolic Panel CBC and Differential ECG 12 Lead Case Request Continuity Writer: Left Heart Cath Possible PTCA/Stent EKG:not done Subjective: Patient seen in followup for Problem Raynaud Phenomenon Unstable Angina (Hcc) Neg stress 2013 I saw the patient 5 months ago he gave a very good history of exertional chest tightness. She had been working around it for a while and would only notice it up on moderate activity such as using a wheelbarrow. More recently when the weather got cooler she cannot walk across a parking lot without getting the tightness and have to sit and rest before it goes away. She denies any specific radiation nausea vomiting or diaphoresis with the discomfort but it is inhibiting her from doing her activities. She is functional class III. Denies , sob, palpitations, pnd, orthopnea,edema or syncope. PMH: Past Medical History: Diagnosis Date Irregular heartbeat Home Medications: Patient's Medications New Prescriptions No medications on file Previous Medications ASPIRIN 81 MG EC TABLET Take 81 mg by mouth as needed . NITROGLYCERIN (NITROSTAT) 0.[address] 1 (one) tablet (0.4 mg total) under the tongue every 5 (five) minutes as needed for chest pain , if no relief after 3rd dose call 911. Modified Medications Modified Medication Previous Medication METOPROLOL SUCCINATE (TOPROL-XL) 25 MG 24 HR TABLET metoprolol succinate (TOPROL-XL) 25 MG 24 hr tablet Take 1 (one) tablet (25 mg total) by mouth daily. Take 1 (one) tablet (25 mg total) by mouth daily. Discontinued Medications No medications on file Physical exam: BP 109/61 (BP Location: Right arm, Patient Position: Sitting, BP Cuff Size: Adult) Pulse 61 Wt 54.3 kg (119 lb 9.6 oz) SpO2 97% BMI 22.60 kg/m General: No acute distress, alert, and oriented x3. HEENT: Normocephalic, Neck: Supple, Cardiovascular: Regular rate and rhythm. No , murmurs, No JVD, No Carotid Bruits Respiratory: Clear to auscultation bilaterally Abdominal: Soft, nontender, nondistended,. Skin: Normal turgor, well-hydrated, Extremities : No clubbing cyanosis or edema Neurological: Cranial nerves 2 through 12 intact grossly. No focal neurological deficits noted. Psych: Normal mood and affect. ROS/MA were reviewedin this encounter Assessment & Plan Note - Blaze Faria MD - 05/01/2017 9:53 AM ESTAssessment & Plan Note - Blaze Faria MD - 04/28/2017 12:31 PM EST Miscellaneous Notes (unrecog nized section and content) Associated Problem(s): Unstable angina (HCC) She has angiographically normal coronary arteries. 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 Will discuss nitratesin this encounter Associated Problem(s): Raynaud phenomenon discusssed and recommended to keep warm Associated Problem(s): Unstable angina (HCC) Continues to have Predictable angina in cold or in warm with wheel barrel Occurring with less activity Now that it is cold Will proceed with cath in this encounter Associated Problem(s): Chest pain No issues and feels much better than last year hasnt used and can stop imdur Associated Problem(s): PVC (premature ventricular contraction) Rare PVC No change and much better Doing well, Medications reviewed and will continue current meds Followup 1 year in this encounter Associated Problem(s): PVC (premature ventricular contraction) Minimal PVCs Doing well, Medications reviewed and will continue current meds Followup 1 year Associated Problem(s): Chest pain Still has rare, unpredictable times of exertional chest tightness lasting 2-3 minutes But stays extremely active documented in this encounter INFORMATION SOURCE (unrecogn ized section and content) DATE CREATED AUTHOR AUTHOR'S ORGANIZ ATION 11/07/2017 [facility] DATE CREATED AUTHOR AUTHOR'S ORGANIZ ATION 05/24/2021 [facility] DATE CREATED AUTHOR AUTHOR'S ORGANIZ ATION 02/19/2023 [facility] Reason for Visit (unrecogniz ed section and content) Reason Onset Date Comments Population Health Navigation Outreach 09/04/2021 [employer] [facility] Reason Comments Pain Reason Onset Date Comments Medication Refill 12/25/2020 Reason Comments Annual Exam Chest Pain c/o exertional chest tightness Reason Comments Follow-up yearly exam Care Teams (unrecognized sec tion and content) Diamond Polisher Relationship Specialty Start Date End Date Gregg Dodge MD [address] [place] [address] PCP - General Internal Medicine 11/21/16 Diamond Polisher Relationship Specialty Start Date End Date Gregg Dodge MD [address] [place] [address] PCP - General 01/03/10 Diamond Polisher Relationship Specialty Start Date End Date Gregg Dodge MD [address] [place] [address] PCP - General 01/03/10 Diamond Polisher Relationship Specialty Start Date End Date Gregg Dodge MD [address] [place] [address] PCP - General 01/03/10 Diamond Polisher Relationship Specialty Start Date End Date Gregg Dodge MD [address] [place] [address] PCP - General 01/03/10 Diamond Polisher Relationship Specialty Start Date End Date Gregg Ddoge MD [address] [place] [address] PCP - General 01/03/10 Diamond Polisher Relationship Specialty Start Date End Date Gregg Dodge MD [address] [place], [place] [id number] PCP - General 01/03/10 Source Comments (unrecognize d section and content) In the event this informatio n is protected by the Federal Confidentiality of Alcohol and Drug Abuse Patient Records regulations: The Federal rules restrict any use of the information to criminally investigate or prosecute any alcohol or drug abuse patient.[facility] the event this information is protected by the Federal Confidentiality of Alcohol and Drug Abuse Patient Records regulations: The Federal rules restrict any use of the information to criminally investigate or prosecute any alcohol or drug abuse patient.[facility] the event this information is protected by the Federal Confidentiality of Alcohol and Drug Abuse Patient Records regulations: The Federal rules restrict any use of the information to criminally investigate or prosecute any alcohol or drug abuse patient.[facility] [place] the event this information is protected by the Federal Confidentiality of Alcohol and Drug Abuse Patient Records regulations: The Federal rules restrict any use of the information to criminally investigate or prosecute any alcohol or drug abuse patient.[facility] [place] the event this information is protected by the Federal Confidentiality of Alcohol and Drug Abuse Patient Records regulations: The Federal rules restrict any use of the information to criminally investigate or prosecute any alcohol or drug abuse patient.[facility] [place] the event this information is protected by the Federal Confidentiality of Alcohol and Drug Abuse Patient Records regulations: The Federal rules restrict any use of the information to criminally investigate or prosecute any alcohol or drug abuse patient.[facility] [place] FOR RECORDS PERTAINING TO PATIENTS WHO ARE OR HAVE BEEN ENROLLED IN A CHEMICAL DEPENDENCY/SUBSTANCEABUSE PROGRAM, SOME INFORMATION MAY BE OMITTED. This clinical summary was aggregated from multiple sources. Caution should be exercised in using it in the provision of clinical care. This summary normalizes information from multiple sources, and as a consequence, information in this document may materially change the coding, format and clinical context of patient data. In addition, data may be omitted in some cases. CLINICAL DECISIONS SHOULD BE BASED ON THE PRIMARY CLINICAL RECORDS. [employer] [facility]. provides no warranty or guarantee of the accuracy or completeness of information in this document.
== END | disposition home or self-care (01) ==
PROVIDERS: PCP Internal Medicine; Referring Provider Internal Medicine Cardiovascular Disease; Visit Provider Internal Medicine Cardiovascular Disease
DX: R00.2 Palpitations (principal)
CPT/HCPCS: 93306